=== PATIENT | male | born 1975 | race Two or more races ===

== ENCOUNTER 2018-12-08 17:49 | Emergency (ER) | payer MEDICAID ==
[~2018-12-08] VITALS: Ht 172.7 cm; Wt 103.0 kg
[2018-12-08] MEDS ORDERED: CYCLOBENZAPRINE 10MG TABLET PO ONE (19:00)
[2018-12-08] MEDS ORDERED: KETOROLAC 60MG/2ML VIAL IM ONE (19:00)
[2018-12-08 20:41] VITALS: BP 137/80
== END 2018-12-08 20:42 | disposition home or self-care (01) ==
LOC: ER 17:49
DX: M54.9 Dorsalgia, unspecified (principal); M79.18 Myalgia, other site
CPT/HCPCS: 96372; 99283; J1885